=== PATIENT | male | born 1945 | race Caucasian/White ===

== ENCOUNTER → 2016-10-20 | Outpatient (CLI) | payer MEDICARE, OTHER | END | disposition home or self-care (01) | LOC: GMAB 10:59 | PROVIDERS: ATTEND Family Medicine | DX: Z12.5 Encounter for screening for malignant neoplasm of prostate (principal); E78.5 Hyperlipidemia, unspecified | CPT/HCPCS: 84443; G0103 ==

== ENCOUNTER → 2017-12-19 | Outpatient (CLI) | payer MEDICARE, OTHER | LOC: GMAB 10:40 | PROVIDERS: ATTEND Family Medicine | DX: R53.82 Chronic fatigue, unspecified (principal); Z12.5 Encounter for screening for malignant neoplasm of prostate; Z79.899 Other long term (current) drug therapy | CPT/HCPCS: 84403; 84443; G0103 ==

== ENCOUNTER → 2020-01-17 | Outpatient (CLI) | payer MEDICARE, OTHER | LOC: GMAE 11:40 | PROVIDERS: ATTEND Family Medicine | DX: Z12.5 Encounter for screening for malignant neoplasm of prostate (principal); Z79.899 Other long term (current) drug therapy; E78.5 Hyperlipidemia, unspecified | CPT/HCPCS: 84443; G0103 ==

== ENCOUNTER 2020-05-26 17:09 | Inpatient (IN) | payer MEDICARE, OTHER ==
--- NOTE | 2020-05-26 17:37 | ED.PDOC ---
History of Present Illness - General Time Seen by Provider: 05/26/20 17:35 Source: patient - History of Present Illness Initial Comments: 74-year-old male with PMH of polycythemia vera, hemachromatosis who presents to the ED brought in by his from home for chief complaint of confusion and dehydration. The patient reports that he tested positive last week in the clinic for COVID-19. He reports minimal symptoms. Denies any cough, fevers, chills, chest pain, dyspnea, abdominal pain, nausea/vomiting/diarrhea. Here he is without any complaints and is unsure why he was brought in. Per the nurse his reported that she was concerned that he was acting more confused than usual and also felt that he might be dehydrated. Patient does admit to decreased fluid intake recently. The patient reports he was Rx'd Azithromycin last week by his PCP, which he recently completed. also reports that he has some sort of blood disorder. Patient's daughter is a nurse and was concerned as well and wanted him to be evaluated in the ED. PCP is Dr. Arzate. Sees Dr. Haq for his PV and hemachromatosis and has blood taken off once per month. Allergies/Adverse Reactions: Allergies NO KNOWN ALLERGY Allergy (Verified 05/26/20 18:17) Review of Systems - Review of Systems Review of Systems: 05/26/20 17:54 as per HPI All other Systems: Reviewed and Negative Family Medical History - Family History Mother Family History: Unknown Physical Exam - Physical Exam General Appearance: Alert, Comfortable, No apparent distress Eye Exam: bilateral normal Ears, Nose, Throat: hearing grossly normal, pharyngeal erythema Neck: non-tender, full range of motion, supple, normal inspection Respiratory: chest non-tender, rales - Bibasilar rales, worse on the right, no wheezes or rhonchi noted, good air movement throughout Cardiovascular/Chest: normal peripheral pulses, regular rate, rhythm, no edema, no gallop, no JVD, no murmur Peripheral Pulses: radial,right: 2+, radial,left: 2+ Gastrointestinal/Abdominal: non tender, soft, no organomegaly Back Exam: normal inspection, no CVA tenderness, no vertebral tenderness Extremity: normal range of motion, non-tender, normal inspection, no pedal edema, no calf tenderness, normal capillary refill Neurologic: drawbridge operator II-XII nml as tested, no motor/sensory deficits, alert, normal m ood/affect, other - oriented to person and place, very slow mentation to think of year and month, not oriented to date Skin Exam: normal color, warm/dry Progress - Progress Progress: 05/26/20 17:57 Altered mental status -Suspect most likely due to acute illness from COVID-19. Consider also dehydration, metabolic derangement, UTI, pneumonia, CHF, ACS, other. Stroke considered but patient with full strength and sensation throughout and no other focal neurological deficits. NIH score is 0. -Patient stable upon arrival, afebrile, vitals within normal limits -Obtain blood work, cardiac work-up, repeat respiratory panel, strep test, UA -Place peripheral IV, 1 L normal saline bolus 05/26/20 19:29 -Patient remains stable. Labs are concerning for slightly elevated LFTs and total bilirubin level. Serum WBC is within normal limits with slight left shift and no bandemia. Rapid strep testing is positive. Chest x-ray reveals bilateral hazy interstitial opacities consistent with COVID-19 pneumonia. -Spoke with Mireya Pleitez who accepts the patient for admission. Request IV Abx with Azithromycin and Rocephin and Decadron 6 mg IV. Will order in the ED. Gurmeet Griffin MD Billing #[id number] 05/26/20 17:35 IV Care:Saline Lock per Protoc QSHIFT Telemetry .ONCE Sodium Chloride 0.9% (Flush) [Saline Flush Syringe] 10 ml IV PRN PRN 05/26/20 17:36 UA [URINALYSIS] Stat 05/26/20 18:00 EKG STAT 05/26/20 18:42 RESPIRATORY PANEL 2 Stat 05/26/20 19:26 Azithromycin IV [Zithromax IV] 500 mg Sodium Chloride 0.9% 250Ml [NS 250ml] 250 ml IVPB ONCE cefTRIAXone SODIUM [Rocephin] 1 gm Sodium Chl 0.9% 50Ml Min-Bag+ [NS 50ml MINI-BAG+] 50 ml IVPB ONCE 05/27/20 09:00 Pulse Ox Daily Laboratory Results - last 24 hr 05/26/20 05/26/20 05/26/20 17:45 17:45 17:45 WBC 6.1 RBC 6.59 H Hgb 17.2 Hct 50.5 MCV 76.7 L MCH 26.2 L MCHC 34.1 RDW 16.5 H Plt Count 243 MPV 7.7 Absolute Neuts (auto) 4.60 Absolute Lymphs (auto) 0.70 L Absolute Monos (auto) 0.80 Absolute Eos (auto) 0.00 Absolute Basos (auto) 0.00 Neutrophils % 74.2 Lymphocytes % 11.1 L Monocytes % 13.5 H Eosinophils % 0.5 L Basophils % 0.7 Fibrinogen D-Dimer, Quantitative Sodium 139 Potassium 3.9 Chloride 104 Carbon Dioxide 25 Anion Gap 13.9 BUN 26 H Creatinine 1.27 BUN/Creatinine Ratio 20.5 H Random Glucose 121 H Serum Osmolality 283.5 Lactic Acid 1.3 Calcium 8.8 Total Bilirubin 1.8 H AST 79 H ALT 131 H Alkaline Phosphatase 89 LD Total Creatine Kinase Troponin I C-Reactive Protein B-Natriuretic Peptide 13.3 Serum Total Protein 7.4 Albumin 3.8 Globulin 3.6 H Albumin/Globulin Ratio 1.1 Group A Strep Rapid 05/26/20 05/26/20 05/26/20 17:45 17:45 17:45 WBC RBC Hgb Hct MCV MCH MCHC RDW Plt Count MPV Absolute Neuts (auto) Absolute Lymphs (auto) Absolute Monos (auto) Absolute Eos (auto) Absolute Basos (auto) Neutrophils % Lymphocytes % Monocytes % Eosinophils % Basophils % Fibrinogen 497 H D-Dimer, Quantitative < 131.0 L Sodium Potassium Chloride Carbon Dioxide Anion Gap BUN Creatinine BUN/Creatinine Ratio Random Glucose Serum Osmolality Lactic Acid Calcium Total Bilirubin AST ALT Alkaline Phosphatase LD Total 244 H Creatine Kinase Troponin I < 0.02 C-Reactive Protein 0.8 B-Natriuretic Peptide Serum Total Protein Albumin Globulin Albumin/Globulin Ratio Group A Strep Rapid 05/26/20 05/26/20 17:45 18:42 WBC RBC Hgb Hct MCV MCH MCHC RDW Plt Count MPV Absolute Neuts (auto) Absolute Lymphs (auto) Absolute Monos (auto) Absolute Eos (auto) Absolute Basos (auto) Neutrophils % Lymphocytes % Monocytes % Eosinophils % Basophils % Fibrinogen D-Dimer, Quantitative Sodium Potassium Chloride Carbon Dioxide Anion Gap BUN Creatinine BUN/Creatinine Ratio Random Glucose Serum Osmolality Lactic Acid Calcium Total Bilirubin AST ALT Alkaline Phosphatase LD Total Creatine Kinase 112 Troponin I C-Reactive Protein B-Natriuretic Peptide Serum Total Protein Albumin Globulin Albumin/Globulin Ratio Group A Strep Rapid Positive H - EKG/XRAY/CT EKG: Sinus - Normal sinus rhythm, heart rate 90, no ST elevations noted, Q waves noted in inferior and anterior leads likely indicative of prior CO, left axis deviation present, intervals normal, no prior EKG for comparison XRAY: chest - Chest x-ray reveals bilateral hazy interstitial opacities consistent with COVID-19 pneumonia per my read Departure - Departure Clinical Impression: COVID-19, LFTs abnormal, Hyperbilirubinemia, Strep pharyngitis Time of Disposition: 19:28 Disposition: Admit Patient Condition: Fair Diet: resume usual diet Referrals: Castillo Booker MD [Primary Care Provider] - 1-2 Weeks Decision To Admit - Decistion To Admit Decision to Admit Reason: Admit from ER Decision to Admit Date: 05/26/20 Decision to Admit Time: 19:29
[2020-05-26] MEDS ORDERED: SODIUM CHLORIDE 0.9% 1000ML 1,000 ML IVS ONE (17:52)
[2020-05-26] MEDS: SODIUM CHLORIDE 0.9% (FLUSH) 10 ML SYG IV PRN (18:18)
--- NOTE | 2020-05-26 18:26 | RAD ---
XR CHEST 1 VIEW HISTORY: COVID-19 positive, dehydration, weakness. COMPARISON: None. FINDINGS: The heart size is within normal limits. There is no pulmonary vascular congestion. Multifocal patchy opacities throughout both lungs, greatest at the right lung base. No pleural effusions or pneumothorax. No acute bony findings are seen. IMPRESSION: Multifocal patchy opacities suggestive of Covid pneumonia. Electronically signed by: Lior Ojeda MD 05/26/2020 6:25 PM CDT
[2020-05-26] MEDS ORDERED: DEXAMETHASONE INJ 4 MG/ML VIAL IV ONE (19:26)
[2020-05-26] MEDS ORDERED: cefTRIAXone SODIUM 1 GM in SODIUM CHL 0.9% 50ML MIN-BAG+ 50 ML IVPB ONE (19:26)
[2020-05-26] MEDS ORDERED: AZITHROMYCIN IV 500 MG in SODIUM CHLORIDE 0.9% 250ML 250 ML IVPB ONE (19:26)
--- NOTE | 2020-05-26 20:25 | HP ---
SUPERVISING PHYSICIAN: Paul Smith MD CHIEF COMPLAINT: Altered mental status. HISTORY OF PRESENT ILLNESS: This is a 74 year-old male patient with a past medical history of hemochromatosis and hyperlipidemia who presented to the Emergency Room due to altered mental status with anorexia. He had tested positive for Covid-19 on 05/21/20 but had reported minimal symptoms. He was somewhat confused and did not know why he was brought in. He actually did tell who the President was but he had a difficult time with the year. The family was quite concerned that he was acting more confused than usual and he may be dehydrated, especially given that his p.o. intake had dropped off significantly. He was given azithromycin last week and has completed it. In the Emergency Room, his vital signs were temperature 97.4 with a heart rate of 99, blood pressure 103/73, respiratory rate 18, oxygen saturation 97%. His lab showed a WBC of 6.1 with a hemoglobin of 17.2, hematocrit of 50.5. He does have one pint of blood taken off monthly per Dr. Lujan for polycythemia vera. His fibrinogen was 497, D-dimer was less than 131. Electrolytes are basically within normal limits. Lactic acid 1.3, bilirubin 1.8. AST 79, ALT 131. Alkaline phosphatase 89, LD 244, creatinine kinase 112, troponin 0.02. C- reactive protein 0.8. Urinalysis showed 100 urine protein, 15 urine ketones, small amount of urine bilirubin and 2 of urobilinogen. Strep was positive, Covid-19 panel was positive. Chest x-ray showed multifocal patchy opacities suggesting of Covid pneumonia. He was admitted to the hospital in stable condition. PAST MEDICAL HISTORY: 1. Hyperlipidemia. 2. Lumbar disk disease. 3. Hemochromatosis. 4. Polycythemia vera. 5. Sleep apnea. PAST SURGICAL HISTORY: None. CURRENT MEDICATIONS: 1. Zocor. 2. Flomax. 3. Mobic. ALLERGIES: No known drug allergies. FAMILY HISTORY: Positive for coronary artery disease. SOCIAL HISTORY: He is . There is no history, ETOH or illicit drug use. REVIEW OF SYSTEMS: GENERAL: Negative for chills, fever or weight changes. HEENT: Negative for sinus symptoms, ear pain, vision changes, sore throat. RESPIRATORY: Negative for coughing, wheezing, shortness of breath CARDIAC: Negative for chest pain, palpitations, tachycardia. GI: Negative for nausea, vomiting, diarrhea, constipation. GENITOURINARY: Negative for hematuria, dysuria, polyuria. SKIN: Negative for lesions or rashes. HEMATOLOGIC: Positive for polycythemia vera and gets one unit of blood taken off monthly per Dr. Lujan in [place]. NEUROLOGICAL: Positive for altered mental status, mild confusion, negative for headaches or seizures. PHYSICAL EXAMINATION: VITAL SIGNS: Temperature 97.4, heart rate 78, blood pressure 135/89, respiratory rate 18, oxygen saturation 99% on room air. GENERAL: This is a 74 year-old male patient who is lying in his hospital bed. He is asleep but awakens easily. HEENT: Normocephalic and atraumatic. Pupils are equal and reactive. Orophnyarnx is clear. NECK: Supple without mass. RESPIRATORY: Essentially clear to auscultation bilaterally but somewhat diminished at the bases. CARDIOVASCULAR: Regular rate and rhythm. ABDOMEN: Soft, nondistended, non-tender. Bowel sounds are positive. EXTREMITIES: No cyanosis, clubbing, or edema. NEUROLOGIC: He is awake and alert. He is oriented to person and place. SKIN: [place], warm and dry. LABORATORY/RADIOLOGY: Labs and films are as per the history of present illness. ASSESSMENT: 1. Covid-19 pneumonitis. 2. Strep A positive. 3. Elevated LFTs. 4. Altered mental status since diagnosis of #1. 5. Hyperlipidemia. 6. Lumbar disk disease. 7. Hemochromatosis. 8. Polycythemia vera. PLAN: The patient has been admitted to the [facility]. Covid-19 guidelines have been initiated and we will follow the labs as per the guidelines. He will continue on Rocephin and Zithromax as well as Decadron and Lovenox and Remdesivir. Lovenox will be for DVT prophylaxis, PPI for ulcer prophylaxis. We will also do neuro checks and CT of his chest for in the morning. We will monitor him and treat as needed. [facility][id number] [facility]
[2020-05-26] MEDS ORDERED: ACETAMINOPHEN 325 MG TAB PO PRN (20:59)
[2020-05-26] MEDS ORDERED: SODIUM CHLORIDE 0.9% (FLUSH) 10 ML SYG IV PRN (20:59)
[2020-05-26] MEDS ORDERED: IV SET AND CAP CHANGE INJ INJ SCH (21:00)
[2020-05-26] MEDS: SODIUM CHLORIDE 0.9% (FLUSH) 10 ML SYG IV SCH (21:30)
[2020-05-26] MEDS ORDERED: ALBUTEROL INHALER 64 PUFF/8GM INH PRN (22:48)
[2020-05-26] MEDS ORDERED: ENOXAPARIN SODIUM 40 MG/0.4 ML SYG SUBCU SCH (23:38)
[2020-05-27] MEDS: SODIUM CHLORIDE 0.9% (FLUSH) 10 ML SYG IV PRN (05:50)
[2020-05-27] MEDS ORDERED: PANTOPRAZOLE SODIUM IV 40 MG VIAL IV SCH (06:30)
--- NOTE | 2020-05-27 08:08 | CT ---
EXAM DESCRIPTION: Chest w/o Contrast CLINICAL HISTORY: 74 years Male, covid COMPARISON: Chest radiograph 05/26/2020 TECHNIQUE: CT images through the chest without IV contrast. Multiplanar reformations provided. This exam was performed according to our departmental dose-optimization program, which includes automated exposure control, adjustment of the mA and/or kV according to patient size and/or use of iterative reconstruction technique. CT CHEST FINDINGS: Heart and mediastinum: Normal heart size. No pericardial effusion. Unremarkable esophagus. Mild atherosclerosis. No pathologically enlarged mediastinal lymph nodes. Evaluation for hilar adenopathy limited without intravenous contrast. Thyroid Gland: Normal. Lungs: Multifocal ground glass opacities with peripheral predominance bilaterally, greatest in the right lower lobe. No dominant nodule or mass like opacity. Airways: Normal. Pleura: Normal. Musculoskeletal and Soft Tissues: No acute fracture or aggressive appearing osseous lesion. Soft tissues unremarkable. Subphrenic Structures: Normal. IMPRESSION: 1. Multifocal groundglass opacities with peripheral predominance most likely representing multifocal pneumonia consistent with history of COVID. Electronically signed by: Dre Fowler MD 05/27/2020 8:06 AM CDT
[2020-05-27] MEDS: ALBUTEROL INHALER 64 PUFF/8GM INH SCH ×4 (08:13→21:30)
[2020-05-27] MEDS ORDERED: AZITHROMYCIN IV 500 MG VIAL IVPB ONE (08:41)
[2020-05-27] MEDS ORDERED: SODIUM CHLORIDE 0.9% 250ML 250 ML ONE (08:41)
[2020-05-27] MEDS ORDERED: REMDESIVIR 100 MG in SODIUM CHLORIDE 0.9% 250ML 250 ML IVPB SCH (09:00)
[2020-05-27] MEDS ORDERED: cefTRIAXone SODIUM 1 GM in SODIUM CHL 0.9% 50ML MIN-BAG+ 50 ML IVPB SCH (09:00)
[2020-05-27] MEDS ORDERED: REMDESIVIR 200 MG in SODIUM CHLORIDE 0.9% 250ML 250 ML IVPB ONE ×2 (09:00→23:36)
--- NOTE | 2020-05-27 09:53 | CT ---
EXAM DESCRIPTION: Head CLINICAL HISTORY: AMS COMPARISON: None TECHNIQUE: Noncontrast transaxial CT images of the head are obtained from base to vertex. This exam was performed according to our departmental dose-optimization program, which includes automated exposure control, adjustment of the mA and/or kV according to patient size and/or use of iterative reconstruction technique. FINDINGS: The midline structures are not displaced. Sulci are age-appropriate. There are areas of decreased attenuation in the periventricular white matter and the white matter of the centrum semiovale. There is no evidence of mass, mass-effect, hydrocephalus, or acute intracranial hemorrhage. No abnormal extra axial fluid collection is seen. Severe calcifications of the intracranial carotid arteries. Bone windows show no evidence of depressed skull fracture. The visualized paranasal sinuses are unremarkable. IMPRESSION: 1. Age-appropriate atrophy with evidence of old small vessel ischemic type changes seen. 2. No acute abnormality is seen on noncontrast CT of the head. Electronically signed by: Zaheer Trivedi MD 05/27/2020 9:51 AM CDT
[2020-05-27] MEDS ORDERED: AZITHROMYCIN IV 500 MG in SODIUM CHLORIDE 0.9% 250ML 250 ML IVPB SCH (10:00)
--- NOTE | 2020-05-27 10:59 | PN ---
SUPERVISING PHYSICIAN: Paul Smith MD DATE: 05/27/20 SUBJECTIVE: The patient states she is not feeling short of breath. He does not really know exactly why he is still in the hospital, but he does know that he came for some confusion. He does not really feel like he is confused. OBJECTIVE: VITAL SIGNS: Blood pressure 123/86, heart rate 69, respiratory rate 16, temperature 96.8, oxygen saturation 97%. GENERAL: Mr. Thomas is a 74-year-old male patient who is in no active distress. NEUROLOGIC: The patient is alert. He is able to tell me who the president is, but not the date or where he is. He knows he is in the hospital, but does not know what town. LUNGS: Clear to auscultation bilaterally. CARDIOVASCULAR: Regular rate and rhythm. Normal S1, S2. ABDOMEN: Soft. Positive bowel sounds. EXTREMITIES: Lower extremities with no edema. Pulses 2+. Capillary refill is less than 2 seconds. LABORATORY: Normal white count, hemoglobin 16.7, hematocrit 47.8, platelet count 253. PTT 27.1, fibrinogen 471, D-dimer 133. Chemistry with mildly elevated BUN at 24. Total bilirubin 1.5, AST 77, ALT 135. ASSESSMENT: 1. Altered mental status. 2. COVID-19 pneumonitis. 3. Strep A pharyngitis. 4. Transaminitis. 5. Hyperlipidemia. 6. Lumbar disc disease. 7. Hemochromatosis. 8. Polycythemia vera. PLAN: At this point, the patient is not symptomatic due to COVID. We will continue the Rocephin and azithromycin for now, but discontinue dexamethasone and Remdesivir. He will have Lovenox for DVT prophylaxis. Given his altered mental status, I am going to check a CT scan of the head to check for acute stroke or bleeding. He does not have any focal deficits, but it almost seems like he has a rapid onset dementia. I spoke with his daughter, Katey Smith, who states he does have a history of repeating himself, but is very independent with no significant confusion in the past. Yesterday, he was in his chair with no volume on the TV because he could not figure out how to do it. Additionally, he went to make himself lunch and instead of turning on the microwave, he turned on the ventihood and could not figure out why his food was not cooking. She states his mother has a history of Alzheimer's stroke. Today, will check a CT scan of the head. Also given his elevated liver function tests, I will check an ammonia level to make sure it is not elevated. #[id number] [facility]
--- NOTE | 2020-05-27 11:03 | RAD ---
EXAM DESCRIPTION: Chest,1 View CLINICAL HISTORY: COVID COMPARISON: Chest radiograph dated May 26, [address] dated May 27, 2020 TECHNIQUE: One view radiograph of the chest FINDINGS: Cardiac silhouette shows normal heart size. Pulmonary vascularity is within normal limits. Redemonstrated are patchy alveolar airspace opacities in the peripheral aspect of the right lung, not changed compared to previous. Previously demonstrated subtle hazy opacity in the peripheral aspect of the left lung not as well demonstrated on chest radiograph. No pleural effusion. No pneumothorax. No acute osseous abnormality. IMPRESSION: Redemonstrated patchy alveolar airspace opacities peripheral aspect of the right lung. Previously demonstrated subtle hazy opacity in the peripheral aspect of the left lung not as well demonstrated on chest radiograph. Overall, findings not significantly changed. Findings compatible with pulmonary infiltrates/pneumonia (including COVID-19 pneumonia). Electronically signed by: Benoit Ferro MD 05/27/2020 11:01 AM CDT
[2020-05-27] MEDS: SODIUM CHLORIDE 0.9% (FLUSH) 10 ML SYG IV SCH ×2 (11:20→21:40)
[2020-05-27] MEDS ORDERED: SIMVASTATIN 20 MG TAB PO SCH (21:00)
[2020-05-27] MEDS ORDERED: ENOXAPARIN SODIUM 40 MG/0.4 ML SYG SUBCU SCH (21:00)
[2020-05-27] MEDS ORDERED: TAMSULOSIN 0.4 MG CAP PO SCH (21:00)
[2020-05-27] MEDS: AMOXICILLIN 500 MG CAP PO SCH (21:40)
[2020-05-28] MEDS ORDERED: PANTOPRAZOLE SODIUM TAB 40 MG PO SCH (06:30)
[2020-05-28] MEDS: AMOXICILLIN 500 MG CAP PO SCH (08:20)
[2020-05-28] MEDS: ALBUTEROL INHALER 64 PUFF/8GM INH SCH ×2 (08:37→12:40)
[2020-05-28] MEDS ORDERED: REMDESIVIR 100 MG in SODIUM CHLORIDE 0.9% 250ML 250 ML IVPB SCH (09:00)
[2020-05-28] MEDS ORDERED: AZITHROMYCIN 250 MG TAB PO SCH (09:00)
[2020-05-28 10:00] VITALS: BP 165/82; TEMP 98
--- NOTE | 2020-05-28 10:27 | PN ---
SUPERVISING PHYSICIAN: Paul Smith MD DATE: 05/28/20 SUBJECTIVE: The patient does not complain of any shortness of breath. He is alert, still confused. The nurses state at times he seems to be lucid and then other times, he will be in his room taking all his clothes off and taking the sheets off his bed. OBJECTIVE: VITAL SIGNS: Blood pressure 165/82, heart rate 69, respiratory rate 18, temperature 98.0, oxygen saturation 98%. GENERAL: Mr. Thomas is a 74-year-old male patient who is in no active distress. NEUROLOGIC: The patient is alert. LUNGS: Diminished, but otherwise clear to auscultation bilaterally. CARDIOVASCULAR: Regular rate and rhythm. Normal S1, S2. ABDOMEN: Soft. Positive bowel sounds. GENITOURINARY: Deferred. EXTREMITIES: Lower extremities with no edema. Pulses 2+. Capillary refill is less than 2 seconds. LABORATORY: Reviewed and show white count 8.0, hemoglobin 15.9, hematocrit 46.4, platelet count 265. Chemistry shows bilirubin 1.7, AST 72, ALT 128. Ammonia level was checked yesterday and was normal at 15. RADIOLOGY: CT scan of head yesterday was done and showed age-appropriate atrophy with evidence of old small vessel ischemic type changes and no acute abnormalities found. ASSESSMENT: 1. Altered mental status. 2. COVID-19 pneumonitis. 3. Strep A pharyngitis. 4. Transaminitis. 5. Hyperlipidemia. 6. Lumbar disc disease. 7. Hemochromatosis. 8. Polycythemia vera. PLAN: The patient still seems to be doing okay related to his COVID diagnosis. His altered mental status is unchanged. He is still nonfocal, but is not able to tell me the year or what town he is in. CT scan of the head yesterday was normal for his age and the patient had a normal ammonia level. I spoke with his daughter once again regarding the patient. I did inform her that his liver function tests were elevated, but his ammonia was not elevated, so I do not think this is hepatic encephalopathy. We did discuss a neurologist and she wanted to use Dr. Turner out of [place]. I am going to contact Dr. Turner and ask for recommendations. I anticipate he will discharge in the next 24 hours given the fact that his COVID pneumonitis appears to be stable and neurological status, while not normal, is not declining either. Unfortunately, given his COVID diagnosis, we cannot perform an MRI at this time. #[id number] [facility]
[2020-05-28 13:20] VITALS: O2SAT 96
--- NOTE | 2020-05-28 14:09 | DS ---
SUPERVISING PHYSICIAN: Paul Smith MD ADMISSION DIAGNOSIS: 1. COVID-19 pneumonitis. 2. Strep A positive. 3. Elevated liver function tests. 4. Altered mental status since diagnosis of COVID-19. 5. Hyperlipidemia. 6. Lumbar disc disease. 7. Hemochromatosis. 8. Polycythemia vera. DISCHARGE DIAGNOSIS: 1. Altered mental status. 2. COVID-19 pneumonitis. 3. Strep A pharyngitis. 4. Transaminitis. 5. Hyperlipidemia. 6. Lumbar disc disease. 7. Hemochromatosis. 8. Polycythemia vera. HOSPITAL COURSE: This is a 74-year-old male patient who was diagnosed with COVID-19 on 05/21/20. At that time, he was placed on dexamethasone and azithromycin. He has had some decreased p.o. intake and the family had noted he had some confusion at home out of the ordinary. He usually is able to take care of himself and does not exhibit any significant confusion. Therefore, he came to the Emergency Room. He was tested for strep as well and was positive. He was referred for admission for altered mental status. Initial examination by me on Tuesday showed the patient was alert, but not oriented to place or time or date. He did know who the president was. I spoke with his daughter who is a nurse manager recruitment of the stroke unit at [facility]. She said at baseline, the patient is able to take care of himself, he drives to [place] by himself and to [place] by himself, doing normal things, however, this new confusion is quite different and out of the ordinary for him. I did get a CT scan of the brain which showed no acute abnormalities, but typical age-appropriate microvascular disease. He does have some elevated liver function tests and I have checked his ammonia level which was normal. I monitored him until this morning and there was really no change in his status. I did not treat him for COVID-19 as the patient was not hypoxic and not short of breath despite the fact he is showing pneumonitis on his chest x-ray and CT scan. I spoke with neurologist, Dr. Turner, in [place] regarding the patient. She requested MRI, but given his COVID-19 diagnosis, we cannot do that at this time. There is the off chance he has had a stroke not detected on CT scan in addition to the fact that he could be having a reaction to the dexamethasone that he was on prior to admission and had encephalopathy from that. However, at this point, no acute findings have been found on workup. This was explained to the daughter and the and they really want the patient to go home. They will followup with Dr. Turner as an outpatient and hopefully an MRI after 14 days quarantine from [place] [id number]. Once again, the patient is not short of breath, he is not hypoxic. He is doing well as far as his pulmonary status is concerned, however, the altered mental status is no different from admission, however, he will be discharged in stable condition for further outpatient workup. [facility][id number] [facility]
== END 2020-05-28 13:30 | disposition home or self-care (01) | DRG 177 ==
LOC: ER 17:09 → OBSVTOIN 20:23 → MS 20:23
PROVIDERS: ADMIT Nurse Practitioner Acute Care; ATTEND Nurse Practitioner
DX: U07.1 COVID-19 (principal); J12.89 Other viral pneumonia; J02.0 Streptococcal pharyngitis; R74.01 Elevation of levels of liver transaminase levels; E78.5 Hyperlipidemia, unspecified; M51.36 Other intervertebral disc degeneration, lumbar region; E83.119 Hemochromatosis, unspecified; D45 Polycythemia vera; G47.30 Sleep apnea, unspecified; Z79.01 Long term (current) use of anticoagulants; Z79.899 Other long term (current) drug therapy

== ENCOUNTER → 2020-06-05 | Outpatient (CLI) | payer MEDICARE, OTHER ==
--- NOTE | 2020-06-06 11:29 | MRI ---
EXAM DESCRIPTION: Brain w/o Contrast: MRI. CLINICAL HISTORY: ALTERED MENTAL STATUS COMPARISON: CT scan of the head May 27. TECHNIQUE: Multiplanar, high-field MRI unit, multiple diffusion sequences, multiple conventional sequences without contrast. FINDINGS: Small bilateral hyperintense foci of FLAIR and T2-weighted signal in the periventricular white matter and sub-cortical white matter. Relative sparing of the bilateral temporal lobes. Small lesion in the vertex of the left parietal lobe. No hemorrhage, no cerebral edema, no midline shift.. Normal signal in the bilateral basal ganglia. Normal signal in the brainstem and cerebellar hemispheres.. Concordance of the diffusion and non-diffusion sequences with no diffusion restriction. Cortical sulci, ventricles, and other CSF spaces, and the subdural spaces are prominent, but age appropriate. No effacement or displacement. No midline shift. No extra-axial hemorrhage. Normal flow signal void in the major vessels of the [place], and the venous sinuses. IACs are symmetric bilaterally. Minimal scattered fluid signal in the left mastoid air cells; normal signal in the right. No mass effect in the bilateral cerebellopontine angles. Pituitary gland occupies less than half of the sella. Base of the cerebellar tonsils is at the level of the foramen magnum. Minimal mucoperiosteal thickening in the paranasal sinuses without air-fluid levels. The bony calvarium is intact. IMPRESSION: 1. Minimal bilateral cerebral white matter focal lesions most likely related to aging and/or cerebral microvascular disease. No hemorrhage, no mass effect, no edema, and no diffusion restriction. Age-appropriate cortical atrophy. No extra-axial hemorrhage or fluid collection. 2. Normal noncontrast MRI diffusion scan elsewhere with no significant ischemia, no acute or subacute infarction. 3. Chronic paranasal sinusitis and probably chronic left mastoiditis. Electronically signed by: Cristobal Khan MD 06/06/2020 11:28 AM CDT
== END ==
LOC: MRI 12:53
PROVIDERS: ATTEND Family Medicine
DX: R41.82 Altered mental status, unspecified (principal); R90.82 White matter disease, unspecified; G31.1 Senile degeneration of brain, not elsewhere classified; J32.9 Chronic sinusitis, unspecified; H70.92 Unspecified mastoiditis, left ear; Z79.899 Other long term (current) drug therapy